=== PATIENT | male | born 1970 | race Caucasian/White ===

== ENCOUNTER 2016-12-01 05:55 | Inpatient (IN) | payer OTHER ==
[~2016-12-01] VITALS: Ht 182.9 cm; Wt 99.8 kg
[2016-12-01 06:05] VITALS: BP 134/82
[2016-12-01 06:07] VITALS: BP 134/82
[2016-12-01] MEDS ORDERED: ATOR20TA9 PO (06:11)
[2016-12-01] MEDS ORDERED: LISI1TAB5 PO (06:11)
[2016-12-01] MEDS ORDERED: SPIR25TA3 PO (06:11)
[2016-12-01] MEDS ORDERED: BACITRACIN 50,000 UNIT ONE (06:35)
[2016-12-01] MEDS ORDERED: THROMBIN 5,000 UNIT VIAL TP ONE (06:35)
[2016-12-01] MEDS ORDERED: KETAMINE 10 MG/ML, 20ML ONE (06:36)
[2016-12-01] MEDS ORDERED: HYDROmorphone 2 MG/ML, 1ML ONE (06:36)
[2016-12-01] MEDS ORDERED: MIDAZOLAM 1 MG/ML, 2ML ONE (06:36)
[2016-12-01] MEDS ORDERED: FENTANYL PF 100 MCG/2ML ONE ×2 (06:36→09:33)
[2016-12-01] MEDS ORDERED: REMIFENTANIL 2 MG ONE (06:36)
[2016-12-01] MEDS ORDERED: THROMBIN 20,000 UNIT VIAL TP ONE (06:47)
[2016-12-01] MEDS ORDERED: HEPARIN 1,000 UNITS/ML, 30ML ONE (07:05)
[2016-12-01] MEDS ORDERED: PROPOFOL 10 MG/ML, 20ML ONE (07:10)
[2016-12-01] MEDS ORDERED: SUCCINYLCHOLINE 20 MG/ML, 10ML ONE (07:10)
[2016-12-01] MEDS ORDERED: ROCURONIUM 10 MG/ML ONE (07:10)
[2016-12-01] MEDS ORDERED: PROPOFOL 10 MG/ML, 50ML ONE (07:10)
[2016-12-01] MEDS ORDERED: NALOXONE 0.4 MG/ML, 1ML ONE (07:10)
[2016-12-01] MEDS ORDERED: CEFAZOLIN 1,000 MG ONE (07:10)
[2016-12-01] MEDS ORDERED: DEXAMETHASONE 4 MG/ML, 1ML ONE (07:10)
[2016-12-01] MEDS ORDERED: SUGAMMADEX 200 MG/2 ML IVPush ONE ×2 (07:10→08:06)
[2016-12-01] MEDS ORDERED: ONDANSETRON 2MG/ML, 2ML ONE (07:10)
[2016-12-01] MEDS ORDERED: BISACODYL 10 MG SUPP PR PRN (08:00)
[2016-12-01] MEDS ORDERED: DIPHENHYDRAMINE 50 MG/ML, 1ML IM PRN (08:00)
[2016-12-01] MEDS ORDERED: PROMETHAZINE 25 MG/ML, 1ML IM PRN (08:00)
[2016-12-01] MEDS ORDERED: PHARMACY MAY ADJ FOR RENAL FX MC PRN (08:00)
[2016-12-01] MEDS ORDERED: MAGNESIUM HYDROXIDE 8%, 30ML UDC PO PRN (08:00)
[2016-12-01] MEDS ORDERED: SENNA/DOCUSATE TABLET PO PRN (08:00)
[2016-12-01] MEDS ORDERED: DIPHENHYDRAMINE 50 MG/ML, 1ML IVPush PRN (08:00)
[2016-12-01] MEDS ORDERED: ONDANSETRON 2MG/ML, 2ML IVPush PRN (08:00)
[2016-12-01] MEDS ORDERED: LABETALOL 5MG/ML, 20ML IVPush PRN (08:00)
[2016-12-01] MEDS ORDERED: PLEASE ENTER ALLERGIES MC SCH ×2 (08:30)
[2016-12-01] MEDS ORDERED: OXYcodone 5 MG/5 ML ORAL.SOL UDC PO PRN (09:00)
[2016-12-01] MEDS ORDERED: ACETAMINOPHEN 325 MG TABLET PO PRN (09:00)
[2016-12-01] MEDS ORDERED: MEPERIDINE/PF 25MG/0.5ML IVPush PRN (09:00)
[2016-12-01] MEDS ORDERED: FENTANYL PF 100 MCG/2ML IV PRN (09:00)
[2016-12-01] MEDS ORDERED: PROMETHAZINE 25 MG/ML, 1ML IV PRN (09:00)
[2016-12-01] MEDS ORDERED: HYDROmorphone 1 MG/ML, 1ML IV PRN (09:00)
[2016-12-01] MEDS ORDERED: OXYcodone 5 MG/5 ML ORAL.SOL UDC ONE (09:33)
[2016-12-01] MEDS ORDERED: HYDROmorphone 1 MG/ML, 1ML ONE (09:33)
[2016-12-01 11:02] VITALS: BP 154/83
[2016-12-01] MEDS: OXYcodone/APAP 5/325MG TABLET PO PRN ×3 (12:33→18:41)
[2016-12-01 13:22] VITALS: BP 147/73
[2016-12-01] MEDS: ATORVASTATIN 20 MG TABLET PO SCH (14:05)
[2016-12-01] MEDS: SPIRONOLACTONE 25 MG TABLET PO SCH (14:05)
[2016-12-01] MEDS: HYDROCHLOROTHIAZIDE 12.5 MG CAPSULE PO SCH (14:05)
[2016-12-01] MEDS: LISINOPRIL 20 MG TABLET PO SCH (14:05)
[2016-12-01] MEDS: D5%-0.9% NACL+KCL 20MEQ 1,000 ML IV SCH (14:08)
[2016-12-01] MEDS: CEFAZOLIN PMX 1GM/50ML 50 ML IVPB SCH ×2 (15:10→23:40)
[2016-12-01] MEDS: SODIUM CHLORIDE FLUSH 10ML SYR IVF SCH ×2 (15:10→19:45)
[2016-12-01] MEDS: METHOCARBAMOL 750 MG TABLET PO PRN (16:18)
[2016-12-01 19:39] VITALS: BP 132/83
[2016-12-01] MEDS: MORPHINE SULFATE 4 MG/ML, 1ML IVPush PRN ×2 (22:50→23:15)
[2016-12-01 23:42] VITALS: BP 126/79
[2016-12-02] MEDS: HYDROcodone/APAP 5/325 TABLET PO PRN ×7 (00:03→23:57)
[2016-12-02] MEDS: METHOCARBAMOL 750 MG TABLET PO PRN ×3 (00:03→21:41)
[2016-12-02] MEDS: D5%-0.9% NACL+KCL 20MEQ 1,000 ML IV SCH ×3 (00:55→23:00)
[2016-12-02 04:00] VITALS: BP 113/59
[2016-12-02 04:54] LABS: HEMATOCRIT 39.7 % (39.2-51.8); HEMOGLOBIN 13.4 g/dL (13.7-18.0); WHITE BLOOD COUNT 14.9 x10^3/uL (3.4-10)
[2016-12-02 05:04] LABS: BLOOD UREA NITROGEN 18 mg/dL (7-18)
[2016-12-02] MEDS ORDERED: ENOXAPARIN 40 MG/0.4 ML SQ SCH (06:00)
[2016-12-02 06:52] VITALS: BP 108/56
[2016-12-02] MEDS: ATORVASTATIN 20 MG TABLET PO SCH (08:51)
[2016-12-02] MEDS: SPIRONOLACTONE 25 MG TABLET PO SCH (08:52)
[2016-12-02] MEDS: LISINOPRIL 20 MG TABLET PO SCH (08:52)
[2016-12-02] MEDS: SODIUM CHLORIDE FLUSH 10ML SYR IVF SCH ×2 (08:52→20:10)
[2016-12-02] MEDS: HYDROCHLOROTHIAZIDE 12.5 MG CAPSULE PO SCH (08:52)
[2016-12-02] MEDS: CEPHALEXIN 500 MG CAPSULE PO SCH ×3 (10:22→21:38)
[2016-12-02] MEDS: MORPHINE SULFATE 4 MG/ML, 1ML IVPush PRN ×3 (11:32→23:14)
[2016-12-02 13:55] VITALS: BP 138/82
[2016-12-02 19:48] VITALS: BP 104/68
[2016-12-03 02:56] VITALS: BP 103/67
[2016-12-03] MEDS: MORPHINE SULFATE 4 MG/ML, 1ML IVPush PRN ×2 (03:09→07:31)
[2016-12-03] MEDS: HYDROcodone/APAP 5/325 TABLET PO PRN ×2 (04:58→22:06)
[2016-12-03] MEDS: CEPHALEXIN 500 MG CAPSULE PO SCH ×2 (05:00→10:52)
[2016-12-03 05:19] LABS: BLOOD UREA NITROGEN 20 mg/dL (7-18)
[2016-12-03 05:47] LABS: HEMATOCRIT 38.4 % (39.2-51.8); WHITE BLOOD COUNT 10.8 x10^3/uL (3.4-10)
[2016-12-03] MEDS: SODIUM CHLORIDE FLUSH 10ML SYR IVF SCH ×2 (07:32→21:00)
[2016-12-03 07:35] VITALS: BP 123/66
[2016-12-03] MEDS: SPIRONOLACTONE 25 MG TABLET PO SCH (08:15)
[2016-12-03] MEDS: D5%-0.9% NACL+KCL 20MEQ 1,000 ML IV SCH ×2 (08:15→17:24)
[2016-12-03] MEDS: ATORVASTATIN 20 MG TABLET PO SCH (08:15)
[2016-12-03] MEDS: HYDROCHLOROTHIAZIDE 12.5 MG CAPSULE PO SCH (08:15)
[2016-12-03] MEDS: LISINOPRIL 20 MG TABLET PO SCH (08:15)
[2016-12-03] MEDS ORDERED: BUPIVACAINE/PF 0.5% ONE (08:16)
[2016-12-03] MEDS ORDERED: BUPIVACAINE 0.25% ONE (08:16)
[2016-12-03] MEDS ORDERED: EPINEPHRINE 1 MG/ML, 1ML ONE (08:17)
[2016-12-03] MEDS ORDERED: THROMBIN 5,000 UNIT VIAL TP ONE (08:17)
[2016-12-03] MEDS ORDERED: BACITRACIN 50,000 UNIT ONE (08:17)
[2016-12-03] MEDS ORDERED: FENTANYL PF 100 MCG/2ML ONE ×2 (08:19→14:21)
[2016-12-03] MEDS ORDERED: MIDAZOLAM 1 MG/ML, 2ML ONE (08:20)
[2016-12-03] MEDS ORDERED: REMIFENTANIL 2 MG ONE ×3 (08:24→11:08)
[2016-12-03] MEDS ORDERED: ACETAMINOPHEN 325 MG TABLET PO PRN (08:30)
[2016-12-03] MEDS ORDERED: ONDANSETRON 2MG/ML, 2ML IVPush PRN (08:30)
[2016-12-03] MEDS ORDERED: OXYcodone 5 MG/5 ML ORAL.SOL UDC PO PRN (08:30)
[2016-12-03] MEDS ORDERED: HYDROcodone/APAP 7.5-325MG/15ML UDC PO PRN (08:30)
[2016-12-03] MEDS ORDERED: HYDROmorphone 1 MG/ML, 1ML ONE ×2 (08:38→14:21)
[2016-12-03] MEDS ORDERED: ROCURONIUM 10 MG/ML ONE (09:05)
[2016-12-03] MEDS ORDERED: PROPOFOL 10 MG/ML, 20ML ONE (09:05)
[2016-12-03] MEDS ORDERED: CEFAZOLIN 1,000 MG ONE (09:05)
[2016-12-03] MEDS ORDERED: PHENYLEPHRINE 10 MG/ML ONE (09:05)
[2016-12-03] MEDS ORDERED: ONDANSETRON 2MG/ML, 2ML ONE (09:05)
[2016-12-03] MEDS ORDERED: PROPOFOL 10 MG/ML, 50ML ONE (09:05)
[2016-12-03] MEDS ORDERED: SUCCINYLCHOLINE 20 MG/ML, 10ML ONE (09:05)
[2016-12-03] MEDS: FENTANYL PF 100 MCG/2ML IV PRN ×2 (14:31→14:42)
[2016-12-03] MEDS ORDERED: OXYcodone 5 MG/5 ML ORAL.SOL UDC ONE (14:33)
[2016-12-03] MEDS: HYDROmorphone 1 MG/ML, 1ML IV PRN ×5 (14:52→15:23)
[2016-12-03 15:55] VITALS: BP 135/80
[2016-12-03] MEDS: DOXYCYCLINE 100MG TABLET PO SCH (16:59)
[2016-12-03] MEDS: CEFAZOLIN PMX 1GM/50ML 50 ML IVPB SCH (17:24)
[2016-12-03 20:43] VITALS: BP 145/76
[2016-12-03] MEDS: METHOCARBAMOL 750 MG TABLET PO PRN (22:06)
[2016-12-03] MEDS: DIPHENHYDRAMINE 50 MG CAPSULE PO PRN (22:10)
[2016-12-04 00:09] VITALS: BP 122/71
[2016-12-04] MEDS: CEFAZOLIN PMX 1GM/50ML 50 ML IVPB SCH ×3 (01:15→17:31)
[2016-12-04] MEDS: DIPHENHYDRAMINE 50 MG CAPSULE PO PRN ×4 (02:08→23:00)
[2016-12-04] MEDS: HYDROcodone/APAP 5/325 TABLET PO PRN ×6 (02:08→23:00)
[2016-12-04] MEDS: D5%-0.9% NACL+KCL 20MEQ 1,000 ML IV SCH ×2 (04:00→14:37)
[2016-12-04 04:17] VITALS: BP 118/72
[2016-12-04 05:53] LABS: HEMATOCRIT 37.1 % (39.2-51.8); HEMOGLOBIN 12.5 g/dL (13.7-18.0); WHITE BLOOD COUNT 11.8 x10^3/uL (3.4-10)
[2016-12-04 06:19] LABS: BLOOD UREA NITROGEN 13 mg/dL (7-18)
[2016-12-04] MEDS: METHOCARBAMOL 750 MG TABLET PO PRN (06:40)
[2016-12-04] MEDS: DOXYCYCLINE 100MG TABLET PO SCH ×2 (07:04→21:00)
[2016-12-04] MEDS ORDERED: BUTALB/APAP/CAFFEINE 50MG/325MG/40MG PO PRN (07:30)
[2016-12-04] MEDS: ATORVASTATIN 20 MG TABLET PO SCH (08:12)
[2016-12-04] MEDS: DEXAMETHASONE 4 MG/ML, 1ML IV SCH ×3 (08:13→21:12)
[2016-12-04] MEDS: SODIUM CHLORIDE FLUSH 10ML SYR IVF SCH ×2 (08:14→21:00)
[2016-12-04] MEDS: HYDROCHLOROTHIAZIDE 12.5 MG CAPSULE PO SCH (08:18)
[2016-12-04] MEDS: SPIRONOLACTONE 25 MG TABLET PO SCH (08:18)
[2016-12-04] MEDS: LISINOPRIL 20 MG TABLET PO SCH (08:18)
[2016-12-04 09:43] VITALS: BP 115/74
[2016-12-04] MEDS: METHOCARBAMOL 750 MG TABLET PO SCH ×3 (10:43→21:13)
[2016-12-04 16:55] VITALS: BP 122/73
[2016-12-04 20:40] VITALS: BP 131/77
[2016-12-05] MEDS: CEFAZOLIN PMX 1GM/50ML 50 ML IVPB SCH ×3 (01:03→18:25)
[2016-12-05] MEDS: D5%-0.9% NACL+KCL 20MEQ 1,000 ML IV SCH ×2 (01:03→15:45)
[2016-12-05 02:11] VITALS: BP 127/72
[2016-12-05 05:54] LABS: HEMATOCRIT 36.7 % (39.2-51.8); HEMOGLOBIN 12.5 g/dL (13.7-18.0); WHITE BLOOD COUNT 14.3 x10^3/uL (3.4-10)
[2016-12-05 06:02] LABS: BLOOD UREA NITROGEN 14 mg/dL (7-18)
[2016-12-05] MEDS: METHOCARBAMOL 750 MG TABLET PO SCH ×4 (06:17→21:42)
[2016-12-05] MEDS: HYDROcodone/APAP 5/325 TABLET PO PRN ×4 (06:17→21:43)
[2016-12-05] MEDS: SODIUM CHLORIDE FLUSH 10ML SYR IVF SCH ×2 (09:00→21:43)
[2016-12-05 09:30] VITALS: BP 122/76
[2016-12-05] MEDS: HYDROCHLOROTHIAZIDE 12.5 MG CAPSULE PO SCH (09:32)
[2016-12-05] MEDS: DOXYCYCLINE 100MG TABLET PO SCH ×2 (09:32→21:42)
[2016-12-05] MEDS: ATORVASTATIN 20 MG TABLET PO SCH (09:32)
[2016-12-05] MEDS: SPIRONOLACTONE 25 MG TABLET PO SCH (09:32)
[2016-12-05] MEDS: LISINOPRIL 20 MG TABLET PO SCH (09:32)
[2016-12-05 13:54] VITALS: BP 126/79
[2016-12-05 21:05] VITALS: BP 132/69
[2016-12-06] MEDS: CEFAZOLIN PMX 1GM/50ML 50 ML IVPB SCH ×2 (01:31→10:04)
[2016-12-06] MEDS: D5%-0.9% NACL+KCL 20MEQ 1,000 ML IV SCH ×2 (03:00→11:31)
[2016-12-06 04:53] VITALS: BP 98/62
[2016-12-06] MEDS: METHOCARBAMOL 750 MG TABLET PO SCH ×3 (05:27→15:31)
[2016-12-06] MEDS: HYDROcodone/APAP 10/325 MG TABLET PO PRN ×3 (05:28→14:10)
[2016-12-06 05:58] LABS: HEMATOCRIT 37.6 % (39.2-51.8); HEMOGLOBIN 12.6 g/dL (13.7-18.0); WHITE BLOOD COUNT 12.9 x10^3/uL (3.4-10)
[2016-12-06 06:07] LABS: BLOOD UREA NITROGEN 21 mg/dL (7-18)
[2016-12-06 08:41] VITALS: BP 116/68
[2016-12-06] MEDS: ATORVASTATIN 20 MG TABLET PO SCH (09:00)
[2016-12-06] MEDS: LISINOPRIL 20 MG TABLET PO SCH (09:00)
[2016-12-06] MEDS: SODIUM CHLORIDE FLUSH 10ML SYR IVF SCH (09:00)
[2016-12-06] MEDS: SPIRONOLACTONE 25 MG TABLET PO SCH ×2 (09:00→10:04)
[2016-12-06] MEDS: HYDROCHLOROTHIAZIDE 12.5 MG CAPSULE PO SCH ×2 (09:00→10:04)
[2016-12-06] MEDS: DOXYCYCLINE 100MG TABLET PO SCH (09:00)
[2016-12-06] MEDS ORDERED: HYDR-3307 PO (09:23)
[2016-12-06] MEDS ORDERED: METH750T87 PO (09:24)
[2016-12-06] MEDS ORDERED: DOXY100C2 PO (09:26)
[2016-12-06] MEDS ORDERED: MAGNESIUM CITRATE 300ML ORAL SOL PO ONE (09:30)
[2016-12-06 13:29] VITALS: BP 113/72
[2016-12-06] MEDS ORDERED: KETOROLAC 30 MG/1 ML IM PRN (15:30)
== END 2016-12-06 17:01 | disposition home or self-care (01) | DRG 460 ==
LOC: 4NOR 05:55 → DCLOUNGE 12-06 16:39
PROVIDERS: ADMIT Neurological Surgery; ATTEND Neurological Surgery
PROC: 0SB40ZZ Excision of Lumbosacral Disc, Open Approach (ICD-10-PCS; 2016-12-01)
PROC: 0SG00A0 Fusion of Lumbar Vertebral Joint with Interbody Fusion Device, Anterior Approach, Anterior Column, Open Approach (ICD-10-PCS; 2016-12-01)
PROC: 4A11X4G Monitoring of Peripheral Nervous Electrical Activity, Intraoperative, External Approach (ICD-10-PCS; 2016-12-01)
PROC: 0SG30A0 Fusion of Lumbosacral Joint with Interbody Fusion Device, Anterior Approach, Anterior Column, Open Approach (ICD-10-PCS; principal; 2016-12-01 07:00)
DX: M48.07 Spinal stenosis, lumbosacral region (principal); M48.57XA Collapsed vertebra, not elsewhere classified, lumbosacral region, initial encounter for fracture; G83.4 Cauda equina syndrome; M51.17 Intervertebral disc disorders with radiculopathy, lumbosacral region; G89.29 Other chronic pain; L90.5 Scar conditions and fibrosis of skin; M21.379 Foot drop, unspecified foot
CPT/HCPCS: 36415; 72100; 72131; 74000; 80048; 85025; 86850; 86900; 86923; C1713; J0171; J0690; J1100; J1170; J1644; J1650; J1885; J2250; J2270; J2310; J2405; J2704; J3010; J3490; C1760; C1762; C1781; J0330; J2370; J3480